=== PATIENT | male | born 1940 | race Caucasian/White ===

== ENCOUNTER 2023-09-30 07:30 | Day surgery (SDC) | payer OTHER, MEDICARE ==
[2023-09-27 17:40] VITALS: BMI 20.7
[2023-09-30] MEDS ORDERED: LIDOCAINE HCL/PF 2% SDV 5ML VIAL ONE (08:08)
[2023-09-30] MEDS ORDERED: PROPOFOL 40 ML ONE (08:08)
[2023-09-30 09:09] VITALS: PULSE 69; RESP 16
[2023-09-30 09:33] VITALS: TEMP 96.8
[2023-09-30 09:35] VITALS: BP 96/47
== END 2023-09-30 09:50 | disposition home or self-care (01) ==
LOC: FASU-ENDO 07:30
PROVIDERS: ATTEND Internal Medicine Gastroenterology
PROC: 0DB68ZX Excision of Stomach, Via Natural or Artificial Opening Endoscopic, Diagnostic (ICD-10-PCS; 2023-09-30)
PROC: 0DB48ZX Excision of Esophagogastric Junction, Via Natural or Artificial Opening Endoscopic, Diagnostic (ICD-10-PCS; 2023-09-30)
PROC: 0DB98ZX Excision of Duodenum, Via Natural or Artificial Opening Endoscopic, Diagnostic (ICD-10-PCS; principal; 2023-09-30 08:52)
DX: K29.50 Unspecified chronic gastritis without bleeding (principal); K44.9 Diaphragmatic hernia without obstruction or gangrene; K20.90 Esophagitis, unspecified without bleeding; K22.81 Esophageal polyp; R10.13 Epigastric pain
CPT/HCPCS: 88305-TC; 88342-TC